=== PATIENT | female | born 1940 | race American Indian/Alaskan Native ===

== ENCOUNTER 2016-10-21 22:43 | Inpatient (IN) | payer MEDICARE, OTHER ==
[2016-10-21] MEDS ORDERED: DEXTROSE 50% ABBOJECT 25 GM/50 ML SYRINGE IVP PRN (23:16)
[2016-10-21] MEDS ORDERED: DEXTROSE GEL 37.5 GM TUBE PO PRN (23:16)
[2016-10-21] MEDS ORDERED: DEXTROSE 5% 1,000 ML IV PRN (23:16)
[2016-10-21] MEDS ORDERED: GLUCAGON 1 MG/ML VIAL SUBQ PRN (23:16)
[2016-10-21] MEDS ORDERED: ACETAMINOPHEN 325 MG TABLET PO PRN (23:16)
[2016-10-21] MEDS ORDERED: diphenhydrAMINE 25 MG CAPSULE PO PRN (23:16)
[2016-10-22] MEDS ORDERED: METHYLNALTREXONE 12 MG/0.6 ML VIAL SUBQ ONE (00:04)
[2016-10-22] MEDS: HEPARIN 25,000 UNITS/500 ML 500 ML IV SCH ×2 (00:43→11:47)
[2016-10-22] MEDS: INSULIN GLARGINE 300 UNIT/3 ML PEN SUBQ SCH ×3 (00:47→22:14)
[2016-10-22] MEDS: HYDROmorphone 1 MG/ML SYRINGE IVP PRN ×5 (04:23→21:47)
[2016-10-22] MEDS: LEVOTHYROXINE 25 MCG TABLET PO SCH (06:09)
[2016-10-22] MEDS: PANTOPRAZOLE 40 MG TABLET PO SCH (06:09)
[2016-10-22] MEDS: fentaNYL 25 MCG PATCH TOP SCH (06:10)
[2016-10-22] MEDS: SODIUM CHLORIDE FLUSH 0.9% 10 ML SYRINGE IVP SCH ×3 (06:10→13:08)
[2016-10-22] MEDS ORDERED: POLYETHYLENE GLYCOL 3350 17 GM PACKET PO SCH (09:00)
[2016-10-22] MEDS: POLYETHYLENE GLYCOL 3350 17 GM PACKET PO SCH ×2 (09:04→22:14)
[2016-10-22] MEDS: SENNA 8.6 MG TABLET PO SCH (09:05)
[2016-10-22] MEDS: ASPIRIN EC 81 MG TABLET PO SCH (09:05)
[2016-10-22] MEDS: INSULIN ASPART 300 UNIT/3 ML PEN SUBQ SCH ×4 (09:13→22:13)
[2016-10-22] MEDS: SODIUM CHLORIDE FLUSH 0.9% 10 ML SYRINGE IVP PRN (16:51)
[2016-10-22] MEDS: HYDROcod/ACETAM 5/325 MG TABLET PO PRN (18:56)
[2016-10-23] MEDS: HYDROmorphone 1 MG/ML SYRINGE IVP PRN ×6 (00:29→22:42)
[2016-10-23] MEDS: SODIUM CHLORIDE FLUSH 0.9% 10 ML SYRINGE IVP PRN ×3 (00:29→21:19)
[2016-10-23] MEDS: SODIUM CHLORIDE FLUSH 0.9% 10 ML SYRINGE IVP SCH ×5 (00:46→22:42)
[2016-10-23] MEDS: LEVOTHYROXINE 25 MCG TABLET PO SCH (07:26)
[2016-10-23] MEDS: PANTOPRAZOLE 40 MG TABLET PO SCH (07:26)
[2016-10-23] MEDS: INSULIN ASPART 300 UNIT/3 ML PEN SUBQ SCH ×4 (08:32→20:59)
[2016-10-23] MEDS: POLYETHYLENE GLYCOL 3350 17 GM PACKET PO SCH ×2 (08:33→21:16)
[2016-10-23] MEDS: SENNA 8.6 MG TABLET PO SCH (08:33)
[2016-10-23] MEDS: ASPIRIN EC 81 MG TABLET PO SCH (08:33)
[2016-10-23] MEDS: INSULIN GLARGINE 300 UNIT/3 ML PEN SUBQ SCH ×2 (08:34→21:17)
[2016-10-23] MEDS: HYDROcod/ACETAM 5/325 MG TABLET PO PRN (19:13)
[2016-10-23] MEDS ORDERED: INSULIN GLARGINE 300 UNIT/3 ML PEN SUBQ SCH (21:00)
[2016-10-23] MEDS: ENOXAPARIN 100 MG/ML SYRINGE SUBQ SCH (21:17)
[2016-10-24] MEDS: HYDROcod/ACETAM 5/325 MG TABLET PO PRN (01:00)
[2016-10-24] MEDS: HYDROmorphone 1 MG/ML SYRINGE IVP PRN ×6 (02:39→23:00)
[2016-10-24] MEDS: SODIUM CHLORIDE FLUSH 0.9% 10 ML SYRINGE IVP PRN ×6 (02:39→23:01)
[2016-10-24] MEDS: DEXTROSE 5% 1,000 ML IV SCH ×3 (04:26→17:26)
[2016-10-24] MEDS: ONDANSETRON 4 MG/2 ML VIAL IVP PRN ×2 (06:14→16:23)
[2016-10-24] MEDS: PANTOPRAZOLE 40 MG TABLET PO SCH (06:14)
[2016-10-24] MEDS: LEVOTHYROXINE 25 MCG TABLET PO SCH (06:14)
[2016-10-24] MEDS: INSULIN ASPART 300 UNIT/3 ML PEN SUBQ SCH ×4 (08:15→22:10)
[2016-10-24] MEDS: ENOXAPARIN 100 MG/ML SYRINGE SUBQ SCH ×2 (08:15→22:09)
[2016-10-24] MEDS: ASPIRIN EC 81 MG TABLET PO SCH (08:15)
[2016-10-24] MEDS: SENNA 8.6 MG TABLET PO SCH (08:15)
[2016-10-24] MEDS: SODIUM CHLORIDE FLUSH 0.9% 10 ML SYRINGE IVP SCH ×2 (08:17→22:11)
[2016-10-24] MEDS: INSULIN GLARGINE 300 UNIT/3 ML PEN SUBQ SCH ×2 (08:17→22:09)
[2016-10-24] MEDS: POLYETHYLENE GLYCOL 3350 17 GM PACKET PO SCH ×2 (08:17→22:05)
[2016-10-25] MEDS: DEXTROSE 5% 1,000 ML IV SCH (02:37)
[2016-10-25] MEDS: HYDROmorphone 1 MG/ML SYRINGE IVP PRN ×4 (02:37→11:15)
[2016-10-25] MEDS: fentaNYL 25 MCG PATCH TOP SCH (06:44)
[2016-10-25] MEDS: SODIUM CHLORIDE FLUSH 0.9% 10 ML SYRINGE IVP SCH ×2 (06:45→08:51)
[2016-10-25] MEDS: PANTOPRAZOLE 40 MG TABLET PO SCH (06:45)
[2016-10-25] MEDS: LEVOTHYROXINE 25 MCG TABLET PO SCH (06:45)
[2016-10-25] MEDS ORDERED: MAGNESIUM HYDROXIDE 2,400 MG/30 ML UDC PO ONE (07:31)
[2016-10-25] MEDS: POLYETHYLENE GLYCOL 3350 17 GM PACKET PO SCH (08:50)
[2016-10-25] MEDS: ASPIRIN EC 81 MG TABLET PO SCH (08:50)
[2016-10-25] MEDS: ENOXAPARIN 100 MG/ML SYRINGE SUBQ SCH (08:50)
[2016-10-25] MEDS: SENNA 8.6 MG TABLET PO SCH (08:50)
[2016-10-25] MEDS: INSULIN ASPART 300 UNIT/3 ML PEN SUBQ SCH ×2 (09:00→11:57)
[2016-10-25] MEDS ORDERED: DOCUSATE SODIUM 250 MG CAPSULE PO SCH (09:00)
[2016-10-25] MEDS: INSULIN GLARGINE 300 UNIT/3 ML PEN SUBQ SCH (09:00)
[2016-10-25] MEDS: HYDROcod/ACETAM 5/325 MG TABLET PO PRN (12:44)
== END 2016-10-25 14:53 | disposition home health service (06) | DRG 175 ==
DX: I26.99 Other pulmonary embolism without acute cor pulmonale (principal); J18.9 Pneumonia, unspecified organism; C56.9 Malignant neoplasm of unspecified ovary; G89.3 Neoplasm related pain (acute) (chronic); E11.65 Type 2 diabetes mellitus with hyperglycemia; E03.9 Hypothyroidism, unspecified; Z68.42 Body mass index [BMI] 45.0-49.9, adult; C78.6 Secondary malignant neoplasm of retroperitoneum and peritoneum; R18.8 Other ascites; E46 Unspecified protein-calorie malnutrition; I11.9 Hypertensive heart disease without heart failure; M19.90 Unspecified osteoarthritis, unspecified site; E66.01 Morbid (severe) obesity due to excess calories; K59.00 Constipation, unspecified; T40.2X5A Adverse effect of other opioids, initial encounter; Z79.4 Long term (current) use of insulin; Z79.82 Long term (current) use of aspirin; Z79.891 Long term (current) use of opiate analgesic; Z79.899 Other long term (current) drug therapy